=== PATIENT | male | born 1935 | race Caucasian/White ===

== ENCOUNTER 2016-11-19 18:41 | Emergency (ER) | payer MEDICARE, OTHER ==
[2016-11-19] MEDS ORDERED: ACETAMINOPHEN 325 MG TABLET PO STA (19:37)
[2016-11-19] MEDS ORDERED: ACETAMINOPHEN 325 MG TABLET PO ONE (19:44)
[2016-11-19] MEDS ORDERED: AZITHROMYCIN 250 MG TABLET PO STA (21:49)
[2016-11-19] MEDS ORDERED: AZITHROMYCIN 250 MG TABLET PO ONE (21:52)
== END 2016-11-19 22:01 | disposition home or self-care (01) ==
DX: A04.5 Campylobacter enteritis (principal); R50.81 Fever presenting with conditions classified elsewhere; D72.829 Elevated white blood cell count, unspecified
CPT/HCPCS: 36415; 80053; 83605; 83690; 85025; 87040; 87045; 87046; 87070; 87275; 87276; 87430; 87493; 99283; A9270

== ENCOUNTER 2019-02-23 14:36 | Outpatient (CLI) | payer MEDICARE, OTHER ==
[2019-02-23 14:55] LABS: BASOPHILS % (AUTO) 0.7 %; EOSINOPHILS # (AUTO) 0.2 10^3/uL (0.0-0.7); EOSINOPHILS % (AUTO) 3.5 %; LYMPHOCYTES % (AUTO) 36.3 %; MEAN CORPUSCULAR HEMOGLOBIN 29.5 pg (27.0-31.0); MEAN CORPUSCULAR HGB CONC 31.5 g/dL (32.0-36.0); MEAN CORPUSCULAR VOLUME 93.7 fL (80.0-94.0); MEAN PLATELET VOLUME 10.4 fL (7.4-11.4); MONOCYTES # (AUTO) 0.5 10^3/uL (0.0-1.0); MONOCYTES % (AUTO) 8.3 %; NEUTROPHILS # (AUTO) 2.8 10^3/uL (1.5-6.6); NEUTROPHILS % (AUTO) 50.8 %; PLT - PLATELET COUNT 179 10^3/uL (130-450); RED BLOOD COUNT 4.41 10^6/uL (4.70-6.10); RED CELL DISTRIBUTION WIDTH 12.2 % (12.0-15.0); WHITE BLOOD COUNT 5.4 x10^3/uL (4.8-10.8)
[2019-02-23 15:02] LABS: ALBUMIN 3.7 g/dL (3.2-5.5); ALBUMIN/GLOBULIN RATIO 1.2 (1.0-2.2); BILIRUBIN,TOTAL 0.7 mg/dL (0.2-1.0); CREATININE 0.7 mg/dL (0.6-1.2); TOTAL PROTEIN 6.7 g/dL (6.7-8.2)
== END 2019-02-23 14:37 | disposition home or self-care (01) ==
LOC: LAB 14:36
PROVIDERS: ATTEND Physician Assistant
DX: N30.01 Acute cystitis with hematuria (principal)
CPT/HCPCS: 36415; 80053; 85025

== ENCOUNTER 2019-07-20 07:21 | Outpatient (CLI) | payer MEDICARE, OTHER | END 2019-07-20 07:22 | disposition home or self-care (01) | LOC: LAB 07:21 | PROVIDERS: ATTEND Urology | DX: N50.0 Atrophy of testis (principal); N40.1 Benign prostatic hyperplasia with lower urinary tract symptoms; R35.0 Frequency of micturition; Z80.42 Family history of malignant neoplasm of prostate | CPT/HCPCS: 36415; 81599; 84153; 84402; 84403 ==

== ENCOUNTER 2020-02-17 17:35 | Outpatient (CLI) | payer MEDICARE, OTHER | END 2020-02-17 17:36 | disposition short-term general hospital (02) | LOC: EMS 17:35 | PROVIDERS: ATTEND Surgery | DX: I21.4 Non-ST elevation (NSTEMI) myocardial infarction (principal) | CPT/HCPCS: A0425; A0426 ==

== ENCOUNTER 2020-07-24 17:16 | Outpatient (CLI) | payer MEDICARE, OTHER | END 2020-07-24 17:17 | disposition home or self-care (01) | LOC: COV 17:16 | PROVIDERS: ATTEND Internal Medicine | DX: Z01.812 Encounter for preprocedural laboratory examination (principal); Z20.828 Contact with and (suspected) exposure to other viral communicable diseases ==

== ENCOUNTER 2020-08-06 15:00 | Outpatient (CLI) | payer MEDICARE, OTHER | END 2020-08-06 15:01 | disposition EMS.NT | LOC: EMS 15:00 | PROVIDERS: ATTEND Surgery | DX: R04.0 Epistaxis (principal) ==

== ENCOUNTER 2020-11-28 11:00 | Emergency (ER) | payer MEDICARE, OTHER ==
--- NOTE | 2020-11-28 11:21 | XRAY Report ---
PROCEDURE: Chest 1 View X-Ray INDICATIONS: Chest pain TECHNIQUE: One view of the chest was acquired. COMPARISON: 02/17/2020. FINDINGS: Surgical changes and devices: None. Lungs and pleura: No pleural effusions or pneumothorax. Lungs are clear. Mediastinum: Mediastinal contours appear normal. Heart size is normal. Bones and chest wall: No suspicious bony lesions. Overlying soft tissues appear unremarkable. IMPRESSION: No acute cardiopulmonary disease process. Reviewed by: Daniela Mccollum MD, PhD on 11/28/2020 11:20 AM PDT Approved by: Daniela Mccollum MD, PhD on 11/28/2020 11:20 AM PDT Station ID: [id number]
[2020-11-28 11:26] LABS: BASOPHILS % (AUTO) 0.4 %; EOSINOPHILS # (AUTO) 0.3 10^3/uL (0.0-0.7); EOSINOPHILS % (AUTO) 3.6 %; HCT - HEMATOCRIT 43.4 % (42.0-52.0); LYMPHOCYTES # (AUTO) 1.3 10^3/uL (1.5-3.5); LYMPHOCYTES % (AUTO) 19.2 %; MEAN CORPUSCULAR HEMOGLOBIN 30.4 pg (27.0-31.0); MEAN CORPUSCULAR HGB CONC 32.3 g/dL (32.0-36.0); MEAN CORPUSCULAR VOLUME 94.3 fL (80.0-94.0); MEAN PLATELET VOLUME 12.2 fL (7.4-11.4); MONOCYTES # (AUTO) 0.7 10^3/uL (0.0-1.0); MONOCYTES % (AUTO) 9.6 %; NEUTROPHILS # (AUTO) 4.7 10^3/uL (1.5-6.6); NEUTROPHILS % (AUTO) 67.1 %; PLT - PLATELET COUNT 144 10^3/uL (130-450); RED CELL DISTRIBUTION WIDTH 13.1 % (12.0-15.0)
[2020-11-28 11:31] VITALS: BP 127/75
[2020-11-28 11:38] LABS: ALBUMIN 3.9 g/dL (3.2-5.5); ALBUMIN/GLOBULIN RATIO 1.4 (1.0-2.2); BILIRUBIN,TOTAL 1.4 mg/dL (0.2-1.0); CALCIUM 9.2 mg/dL (8.5-10.3); CREATININE 0.8 mg/dL (0.6-1.2); POTASSIUM 3.7 mmol/L (3.5-5.0); TOTAL PROTEIN 6.7 g/dL (6.7-8.2)
--- NOTE | 2020-11-28 11:54 | ED Physician Documentation ---
History of Present Illness - Stated complaint Stated Complaint: SOA/LIGHT HEADED - Chief complaint Chief Complaint: Cardiac - Additonal information Additional information: 85-year-old male presents the emergency department for evaluation of worsening fatigue and weakness after reported event about 1 week ago in which she was sitting and went to get up but got progressively dizzy and lightheaded and felt as though he was going to faint. He states that since that event 1 week ago he has not felt right since he denies chest pain. He does endorse shortness of breath that is not new from baseline. He did have an NSTEMI event about 1 year ago in which he ultimately had 5 stents placed in his heart. He is currently on Plavix and aspirin and is followed by cardiology through [facility]. He last saw cardiology in September 2020 with a plan to have a 3-month follow-up to include an echocardiogram. His echo is currently scheduled for mid December with the appointment with cardiology to follow. At this time patient denies any cough, fevers, chest pain. He has no leg swelling, nausea vomiting. No focal or unilateral weakness. No diarrhea. He does endorse some dysuria but states that it is normal for him. Former smoker, quit almost 50 years ago Review of Systems Constitutional: reports: Fatigue. denies: Fever, Chills Eyes: reports: Reviewed and negative Ears: reports: Reviewed and negative Nose: reports: Rhinorrhea / runny nose Throat: reports: Reviewed and negative Cardiac: denies: Chest pain / pressure, Palpitations, Pedal edema, Calf pain Respiratory: reports: Dyspnea. denies: Cough, Hemoptysis, Wheezing GI: denies: Abdominal Pain, Nausea, Vomiting : reports: Dysuria. denies: Frequency, Hesitancy Skin: denies: Rash, Lesions, Abrasion (s) Musculoskeletal: denies: Neck pain, Back pain, Extremity pain Neurologic: reports: Near syncope. denies: Generalized weakness, Syncope, Confused, Altered mental status, Headache, LOC PD PAST MEDICAL HISTORY - Past Medical History Cardiovascular: Hypertension, High cholesterol, Coronary artery disease Respiratory: Other GI: Other (reflux) - Past Surgical History Past Surgical History: Yes General: Other (Espinoza) Cardiovascular: Coronary stent - Present Medications Home Medications: Ambulatory Orders Medication Instructions Recorded Confirmed Multivitamin [Multiple Vitamins] 1 each PO 11/19/16 11/19/16 Aspirin 81 mg DAILY 02/17/20 02/17/20 Atorvastatin Calcium 80 mg DAILY 02/17/20 02/17/20 Clopidogrel [Plavix] 1 tab DAILY 11/28/20 11/28/20 Metoprolol Succinate [Toprol Xl] 25 mg PO 11/28/20 Omeprazole 1 tab DAILY 11/28/20 11/28/20 Tamsulosin [Flomax] 1 tab DAILY 11/28/20 11/28/20 - Allergies Allergies/Adverse Reactions: Allergies Allergy/AdvReac Type Severity Reaction Status Date / Time No Known Drug Allergies Allergy Verified 11/28/20 11:02 - Social History Does the pt smoke?: No Smoking Status: Never smoker PD ED PE EXPANDED - General General: Alert, No acute distress, Well developed/nourished - Neck Neck: Supple w/out meningeal sx, No tenderness. No: JVD present, Adenopathy, Thyroid enlarged / mass - Cardiac Cardiac: Regular Rate, Regular Rhythm, Radial strong equal, Pedal strong equal, Cap refill < 2 sec - Respiratory Respiratory: Clear to ausultation jovany. No: Distress, Labored - Abdomen Abdomen: Normal Bowel sounds. No: Tender to palpation - Back Back: Normal exam, Soft tissue tenderness. No: CVA TTP right, CVA TTP left - Derm Derm: Normal color, Warm and dry. No: Rash - Neuro Neuro: Alert and Oriented X 3, CNII-XII intact - GCS Eye Opening: Spontaneous Motor: Obeys Commands Verbal: Oriented Total: 15 Results - Vitals Vitals: Vital Signs - 24 hr 11/28/20 11/28/20 11:02 11:30 Temperature 36.4 C L Heart Rate 64 61 Respiratory 18 18 Rate Blood Pressure 127/68 127/75 O2 Saturation 100 100 Oxygen O2 Source Room air - EKG (time done) 1113 Rate: Rate (enter#) (59) Rhythm: NSR [place]: Normal Intervals: Normal [place], Prolonged QT QRS: Poor R wave progression Ischemia: Normal ST segments Compare to prior EKG: Unchanged from prior EKG Computer interpretation: Agree with computer - Labs Labs: Laboratory Tests 11/28/20 11/28/20 11/28/20 11:12 11:12 11:12 WBC 7.0 RBC 4.60 L Hgb 14.0 Hct 43.4 MCV 94.3 H MCH 30.4 MCHC 32.3 RDW 13.1 Plt Count 144 MPV 12.2 H Neut # (Auto) 4.7 Lymph # (Auto) 1.3 L [place] # (Auto) 0.7 Eos # (Auto) 0.3 Baso # (Auto) 0.0 Absolute Nucleated RBC 0.00 Nucleated RBC % 0.0 Sodium 137 Potassium 3.7 Chloride 101 Carbon Dioxide 26 Anion Gap 10.0 BUN 20 Creatinine 0.8 Estimated GFR (MDRD) 92 Glucose 141 H Calcium 9.2 Total Bilirubin 1.4 H AST 32 ALT 31 Alkaline Phosphatase 100 Troponin I High Sens 6.9 B-Natriuretic Peptide Total Protein 6.7 Albumin 3.9 Globulin 2.8 Albumin/Globulin Ratio 1.4 Lipase 24 TSH Urine Color Urine Clarity Urine pH Ur Specific [place]perance Urine Protein Urine Glucose (UA) Urine Ketones Urine Occult Blood Urine Nitrite Urine Bilirubin Urine Urobilinogen Ur Leukocyte Esterase Urine RBC Urine WBC Ur Squamous Epith Cells Urine Bacteria Urine Culture Comments 11/28/20 11/28/20 11/28/20 11:23 11:34 11:34 WBC RBC Hgb Hct MCV MCH MCHC RDW Plt Count MPV Neut # (Auto) Lymph # (Auto) [place]y # (Auto) Eos # (Auto) Baso # (Auto) Absolute Nucleated RBC Nucleated RBC % Sodium Potassium Chloride Carbon Dioxide Anion Gap BUN Creatinine Estimated GFR (MDRD) Glucose Calcium Total Bilirubin AST ALT Alkaline Phosphatase Troponin I High Sens B-Natriuretic Peptide 101 H Total Protein Albumin Globulin Albumin/Globulin Ratio Lipase TSH 1.59 Urine Color YELLOW Urine Clarity CLEAR Urine pH 6.0 Ur Specific [place]ance <=1.005 Urine Protein NEGATIVE Urine Glucose (UA) NEGATIVE Urine Ketones NEGATIVE Urine Occult Blood NEGATIVE Urine Nitrite NEGATIVE Urine Bilirubin NEGATIVE Urine Urobilinogen 0.2 (NORMAL) Ur Leukocyte Esterase NEGATIVE Urine RBC None Seen Urine WBC 0-3 Ur Squamous Epith Cells RARE Squamous Urine Bacteria None Seen Urine Culture Comments NOT INDICATED - Rads (name of study) CXR Radiology: Final report received (No acute cardiopulmonary process) PD MEDICAL DECISION MAKING - ED course Complexity details: reviewed results, re-evaluated patient, considered differential, d/w patient ED course: 85-year-old male presents the emergency department for evaluation of shortness of breath and fatigue for about 1 week. He does have a history of previous coronary artery disease status post stenting x5. He is appropriately on Plavix and aspirin. Today's EKG is nonischemic high-sensitivity troponin negative chest x-ray shows no acute focal infiltrates. BNP essentially normal. Cardiopulmonary exam without adventitious findings he has no leg swelling or crackles. We did check screening labs including a CBC which were unremarkable as well as a thyroid also unremarkable. 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 Pt denies Chest pain at tis time. At this time he appears very stable for discharge home. Emergent return precautions discussed Departure - Departure Disposition: Home, Self Care Clinical Impression: Shortness of breath Fatigue Qualifiers: Fatigue type: unspecified Qualified Code(s): R53.83 - Other fatigue Condition: Stable Record reviewed to determine appropriate education?: Yes Comments: Giovani choi are seen today in the emergency department for some shortness of breath as well as fatigue following an unclear event about 1 week ago. Today's chest x-ray is normal for age. Your EKG does not look worrisome. All your screening labs including your electrolytes your CBC your thyroid and your troponin are normal. It is important you continue to follow-up with your primary care provider next month as scheduled. If at any point you develop sudden shortness of breath, have fevers, cough, develop chest pain especially with exertion please return immediately to the emergency department.
[2020-11-28 12:13] LABS: BILIRUBIN,URINE NEGATIVE (NEGATIVE); GLUCOSE, URINE (UA) NEGATIVE (NEGATIVE); KETONES,URINE (UA) NEGATIVE (NEGATIVE); LEUKOCYTE ESTERASE, URINE NEGATIVE (NEGATIVE); NITRITE,URINE NEGATIVE (NEGATIVE); OCCULT BLOOD,URINE NEGATIVE (NEGATIVE); PROTEIN,URINE NEGATIVE (NEGATIVE); UROBILINOGEN,URINE 0.2 (NORMAL) E.U./dL (NORMAL)
[2020-11-28 12:17] LABS: CLARITY,URINE CLEAR (CLEAR)
[2020-11-28 12:21] LABS: RBC,URINE None Seen /HPF (0-5); SQUAMOUS EPITHELIAL CELL,UR RARE Squamous (<= Few); WBC,URINE 0-3 /HPF (0-3)
[2020-11-28 12:22] LABS: BACTERIA,URINE None Seen /HPF (None Seen)
[2020-11-28 18:46] LABS: CHOL/HDL RATIO 2.8 (<5.0); CHOLESTEROL 135 mg/dL; CK- CREATINE KINASE 127 IU/L (22-269); HDL CHOLESTEROL 48 mg/dL; LDL CHOLESTEROL,CALCULATED 58 mg/dL; LDL CHOLESTEROL,DIRECT 61 mg/dL; LDL/HDL RATIO 1.2 (<3.6); TRIGLYCERIDES 147 mg/dL; VLDL CHOLESTEROL 29 mg/dL
== END 2020-11-28 15:30 | disposition home or self-care (01) ==
LOC: ED 11:00
DX: R53.83 Other fatigue (principal); R06.02 Shortness of breath; I10 Essential (primary) hypertension; R94.31 Abnormal electrocardiogram [ECG] [EKG]; I25.10 Atherosclerotic heart disease of native coronary artery without angina pectoris; Z87.891 Personal history of nicotine dependence; Z95.5 Presence of coronary angioplasty implant and graft; Z79.01 Long term (current) use of anticoagulants; Z79.82 Long term (current) use of aspirin
CPT/HCPCS: 36415; 80053; 80061; 81001; 82550; 83690; 83721; 83880; 84443; 84484; 85025; 87086; 93005; 99284

== ENCOUNTER 2021-04-23 14:18 | Emergency (ER) | payer MEDICARE, OTHER ==
--- NOTE | 2021-04-23 14:45 | ED Physician Documentation ---
PD HPI UPPER EXT INJURY - Stated complaint Stated Complaint: LT ARM INJ/WOUND - Chief complaint Chief Complaint: Laceration - History obtained from History obtained from: Patient - History of Present Illness Location: Left, Forearm Type of injury: Fall (The patient was carrying a tray down steps and slipped and caught his arm on the railing. Unclear the exact sharp edge but it caused a tear along the forearm quite large.) Where injury occurred: Home Timing - onset: Today (just [employer]) Timing - details: Abrupt onset, Still present Worsened by: Moving, Palpating Contributing factors: No: Anticoagulated (he is on antiplatelet Plavix and bleeds easily; no anticoag.) Similar symptoms before: Has not had sx before Recently seen: Not recently seen Review of Systems Neurologic: denies: Focal weakness, Numbness, Altered mental status, Head injury PD PAST MEDICAL HISTORY - Past Medical History Cardiovascular: Hypertension, High cholesterol, Coronary artery disease Respiratory: Other GI: Other (reflux) - Past Surgical History Past Surgical History: Yes General: Other (Espinoza) Cardiovascular: Coronary stent - Present Medications Home Medications: Ambulatory Orders Medication Instructions Recorded Confirmed Multivitamin [Multiple Vitamins] 1 each PO DAILY 11/19/16 04/23/21 Atorvastatin Calcium 80 mg ORAL DAILY 02/17/20 04/23/21 Clopidogrel [Plavix] 1 tab ORAL DAILY 11/28/20 04/23/21 Metoprolol Succinate [Toprol Xl] 12.5 mg PO DAILY 11/28/20 04/23/21 Omeprazole 1 tab ORAL DAILY 11/28/20 04/23/21 Tamsulosin [Flomax] 1 tab DAILY 11/28/20 04/23/21 Vitamin B Complex Vit C No.3 [B 1 each PO DAILY 04/23/21 04/23/21 Complex with Vitamin C] - Allergies Allergies/Adverse Reactions: Allergies Allergy/AdvReac Type Severity Reaction Status Date / Time No Known Drug Allergies Allergy Verified 04/23/21 14:37 - Social History Does the pt smoke?: No Smoking Status: Never smoker Does the pt have substance abuse?: No PD ED PE NORMAL - Vitals Vital signs reviewed: Yes - General General: Alert and oriented X 3, No acute distress (He does seem in some discomfort from the forearm laceration.), Well developed/nourished - HEENT HEENT: Atraumatic - Derm Derm: Normal color, Warm and dry - Extremities Extremities: Other (left medial volar forearm with laceration vertically, 12 cm in length, to fatty layer. Mild bleeding. No FB. 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 ) - Neuro Neuro: Alert and oriented X 3, No motor deficit, No sensory deficit, Normal speech Results - Vitals Vitals: Vital Signs - 24 hr 04/23/21 14:37 Temperature 36.4 C L Heart Rate 75 Respiratory 16 Rate Blood Pressure 125/65 O2 Saturation 96 Oxygen O2 Source Room air Procedures - Laceration (location) left forearm Wound type: Linear, Into subcut fat, Clean Neurovascular status: Sensory intact, Motor intact, Vascular intact Anesthesia: Lidocaine 1% with epi Wound preparation: Wound explored, To the base, debridement of wound edges (traumatic laceration/avulsion) Deep layer closure: Vicryl, size #-0 - enter number (4) Skin layer closure: Nylon, Running, Size #-0 - enter number (4), Sutures - enter # (29) Other: Patient tolerated well, No complications, Neurovascular intact, Dressing applied, Tetanus booster given Departure - Departure Disposition: 01 Home, Self Care Clinical Impression: Forearm laceration Qualifiers: Encounter type: initial encounter Laterality: left Qualified Code(s): S51.812A - Laceration without foreign body of left forearm, initial encounter Condition: Stable Record reviewed to determine appropriate education?: Yes Instructions: ED Laceration All Follow-Up: Porfirio Lowry MD [Primary Care Provider] - Comments: It is okay to wash and shower. Clean off the wound twice a day with soap and water, or peroxide and water. Apply some antibiotic ointment to it to keep it moist. Also to watch for signs of infection such as purulence, redness or increasing pain. Return to your primary care or the ER at the specified time for suture removal. Suture removal 10 to 12 days. Tylenol every 4 hours if needed for pain. Light activity with the arm for the first several days to a week to not work at the stitches too much. That said, light use of the arm will actually be good for keeping the healing tissue a little bit looser.
[2021-04-23] MEDS ORDERED: ACETAMINOPHEN 325 MG TABLET PO STA (15:27)
[2021-04-23 16:00] VITALS: BP 106/61
== END 2021-04-23 16:00 | disposition home or self-care (01) ==
LOC: ED 14:18
DX: S51.812A Laceration without foreign body of left forearm, initial encounter (principal); W10.9XXA Fall (on) (from) unspecified stairs and steps, initial encounter; Y92.009 Unspecified place in unspecified non-institutional (private) residence as the place of occurrence of the external cause; I10 Essential (primary) hypertension; Z79.02 Long term (current) use of antithrombotics/antiplatelets; Z95.5 Presence of coronary angioplasty implant and graft
CPT/HCPCS: 12004; 99282; A9270

== ENCOUNTER 2022-10-17 08:48 | Outpatient (CLI) | payer MEDICARE, OTHER ==
[2022-10-17 09:23] LABS: ALBUMIN 3.7 g/dL (3.2-5.5); ALBUMIN/GLOBULIN RATIO 1.2 (1.0-2.2); ALKALINE PHOSPHATASE 100 IU/L (42-121); ALT ALANINE AMINOTRANSFERASE 26 IU/L (10-60); AST ASPARTATE AMINOTRANSFERASE 29 IU/L (10-42); BILIRUBIN,TOTAL 0.9 mg/dL (0.2-1.0); BUN - BLOOD UREA NITROGEN 21 mg/dL (6-20); CALCIUM 9.6 mg/dL (8.5-10.3); CARBON DIOXIDE - CO2 26 mmol/L (21-32); CHLORIDE 101 mmol/L (101-111); CHOL/HDL RATIO 2.1 (<5.0); CHOLESTEROL 118 mg/dL; CK- CREATINE KINASE 74 IU/L (22-269); CREATININE 0.7 mg/dL (0.6-1.2); GFR - MDRD 107 (>89); GLUCOSE 139 mg/dL (70-100); HDL CHOLESTEROL 55 mg/dL; LDL CHOLESTEROL,CALCULATED 47 mg/dL; LDL CHOLESTEROL,DIRECT 50 mg/dL; LDL/HDL RATIO 0.9 (<3.6); SODIUM 138 mmol/L (135-145); TOTAL PROTEIN 6.7 g/dL (6.7-8.2); TRIGLYCERIDES 80 mg/dL; VLDL CHOLESTEROL 16 mg/dL
== END 2022-10-17 08:49 | disposition home or self-care (01) ==
LOC: LAB 08:48
PROVIDERS: ATTEND Internal Medicine Cardiovascular Disease
DX: R60.0 Localized edema (principal); E78.5 Hyperlipidemia, unspecified; I25.10 Atherosclerotic heart disease of native coronary artery without angina pectoris
CPT/HCPCS: 36415; 80053; 80061; 82550; 83721

== ENCOUNTER 2024-05-26 18:53 | Emergency (ER) | payer MEDICARE, OTHER ==
--- NOTE | 2024-05-26 19:17 | ED Physician Documentation ---
History of Present Illness - Stated complaint Stated Complaint: SOA - Chief complaint Chief Complaint: Resp - History obtained from History obtained from: Patient - Additonal information Additional information: HPI from patient. Patient complains of rapid onset of pleuritic midline chest pain. Onset was approximately noon today while at rest. The pain radiates to bilateral shoulders but not to his back. He denies history of similar symptoms. He has a chronic cough but does not feel his cough is any different or worse today. Denies hemoptysis. Denies fever. He had recent airplane travel to/from [place] (last week). Has not noticed any leg swelling. He says that, approximately 2 weeks ago, he had signs/symptoms that he felt were consistent with COVID, took a home test and he says the result was positive for COVID. However, he says all of the symptoms he had at that time have completely resolved. Past medical history includes OR with 3 stents (approximately 4 years ago). PD PAST MEDICAL HISTORY - Past Medical History Cardiovascular: Hypertension, High cholesterol, Coronary artery disease Respiratory: Other Neuro: Migraines Endocrine/Autoimmune: None GI: GERD, Other : Benign prostate hypertrophy Psych: None Musculoskeletal: None Derm: Other Other Past Medical History: pulmonary fibrosis - Past Surgical History Past Surgical History: Yes General: Hiatal hernia repair, Other Cardiovascular: Coronary stent - Present Medications Home Medications: Ambulatory Orders Medication Instructions Recorded Confirmed Multivitamin [Multiple Vitamins] 1 each PO DAILY 11/19/16 04/23/21 Atorvastatin Calcium 80 mg ORAL DAILY 02/17/20 04/23/21 Clopidogrel [Plavix] 1 tab ORAL DAILY 11/28/20 04/23/21 Metoprolol Succinate [Toprol Xl] 12.5 mg PO DAILY 11/28/20 04/23/21 Omeprazole 1 tab ORAL DAILY 11/28/20 04/23/21 Tamsulosin [Flomax] 1 tab DAILY 11/28/20 04/23/21 Vitamin B Complex Vit C No.3 [B 1 each PO DAILY 04/23/21 04/23/21 Complex with Vitamin C] traMADol [Ultram] 50 mg PO Q4-6H PRN #14 tablet 05/26/24 - Allergies Allergies/Adverse Reactions: Allergies Allergy/AdvReac Type Severity Reaction Status Date / Time No Known Drug Allergies Allergy Verified 05/26/24 19:10 - Social History Does the pt smoke?: No Smoking Status: Never smoker Does the pt drink ETOH?: No Does the pt have substance abuse?: No - Immunizations Immunizations are current?: No Immunizations: TDAP >10years/unknown PD ED PE NORMAL - Vitals Vital signs reviewed: Yes - General General: Alert and oriented X 3, No acute distress, Well developed/nourished - HEENT HEENT: Moist mucous membranes - Neck Neck: Supple, no meningeal sign - Cardiac Cardiac: RRR, No murmur, No gallop, No rub - Respiratory Respiratory: No respiratory distress, Clear bilaterally - Abdomen Abdomen: Soft, Non tender, Non distended - Back Back: No spinal TTP - Derm Derm: Normal color, Warm and dry, No rash - Extremities Extremities: No edema Results - Vitals Vitals: Oxygen O2 Source Room air - EKG (time done) No standard instances EKG releavant findings:: EKG personally interpreted by author of this note. Relevant findings are: Rate: Rate (enter#) (94) Rhythm: NSR [place]: LAD Intervals: Normal [place], QRS normal QRS: Normal Ischemia: Normal ST segments Other comments: Other comments (unifocal PVCs; moderate artifact that does not preclude interpretation ) Computer interpretation: Disagree with computer (no ST abnormalities including no ST elevation ) - Labs Labs: Laboratory Tests 05/26/24 05/26/24 05/26/24 19:13 19:52 19:52 WBC 12.5 H RBC 4.42 L Hgb 13.1 L Hct 41.3 L MCV 93.4 MCH 29.6 MCHC 31.7 L RDW 13.3 Plt Count 169 MPV 12.0 H Neut # (Auto) 10.5 H Lymph # (Auto) 0.9 L [place] # (Auto) 0.9 Eos # (Auto) 0.1 Baso # (Auto) 0.0 Absolute Nucleated RBC 0.00 Nucleated RBC % 0.0 Sodium 137 Potassium 4.2 Chloride 103 Carbon Dioxide 27 Anion Gap 7.0 BUN 26 H Creatinine 0.9 Estimated GFR (MDRD) 80 L Glucose 110 H Calcium 9.5 Total Bilirubin 0.7 AST 22 ALT 19 Alkaline Phosphatase 105 Troponin I High Sens 8.0 Total Protein 6.9 Albumin 4.1 Globulin 2.8 Albumin/Globulin Ratio 1.5 Lipase 14 Nasal Adenovirus (PCR) NOT DETECTED Nasal B. parapertussis DNA (PCR) NOT DETECTED Nasal Coronavir 229E PCR NOT DETECTED Nasal Coronavir HKU1 PCR NOT DETECTED Nasal Coronavir NL63 PCR NOT DETECTED Nasal Coronavir OC43 PCR NOT DETECTED Nasal Enterovir/Rhinovir PCR NOT DETECTED Nasal Influenza B PCR NOT DETECTED Nasal Influenza A PCR NOT DETECTED Nasal Parainfluen 1 PCR NOT DETECTED Nasal Parainfluen 2 PCR NOT DETECTED Nasal Parainfluen 3 PCR NOT DETECTED Nasal Parainfluen 4 PCR NOT DETECTED Nasal RSV (PCR) NOT DETECTED Nasal B.pertussis DNA PCR NOT DETECTED Nasal C.pneumoniae (PCR) NOT DETECTED [place] Human Metapneumo PCR NOT DETECTED Nasal M.pneumoniae (PCR) NOT DETECTED Nasal SARS-CoV-2 (PCR) DETECTED A - Rads (name of study) CTA chest Relevant Findings:: Prelim report reviewed, See rad report PD Medical Decision Making - ED course Complexity details: reviewed results, re-evaluated patient, considered differential, d/w patient ED course: Patient asking for pain medication but declined IV morphine, saying he doesn't want anything that strong. He is given 30mg IV toradol and subsequently reports resolution of his symptoms. No concerning nor diagnostic findings on EKG (see above for my interpretation), blood tests. Mild leukocytosis noted (12.5 wbc). Normal LFTs. Normal hs-cTn (8.0). Respiratory PCR positive for SARS-COV-2 (as noted in HPI, he tested positive at home two weeks ago for COVID; his current symptoms are not typical for COVID and thus this is likely an incidental finding). CTA chest without evidence of acute/emergent process such as PE or aortic syndrome (such as aneurysm, dissection). There are findings on CT c/w ILD, but patient says he has diagnosis of pulmonary fibrosis and thus these findings are expected. Etiology of patient's symptoms is not apparent at this time. 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 He is given take- home pack of vicodin (he is asking for pain medication for fear that it will recur, although he also is preferring non-narcotic options if appropriate. There are no take-home analgesics I can provide that are non-narcotic, and he has already been given NSAID (toradol) in ED and taken acetaminophen [employer]SEM[employer] although he says he only took 250mg (by breaking 500mg tablet in half)). He says he has had vicodin before and tolerates it well. I am e-prescribing tramadol for him, as well. Departure - Departure Disposition: 01 Home, Self Care Clinical Impression: COVID-19 Chest pain Qualifiers: Chest pain type: unspecified Qualified Code(s): R07.9 - Chest pain, unspecified Condition: Good Instructions: ED Chest Pain Atypical Unkn Cause Prescriptions: traMADol [Ultram] 50 mg PO Q4-6H PRN #14 tablet PRN Reason: Pain 5-7 Comments: You tested positive tonight for COVID. As we discussed, your symptoms are atypical for COVID and thus I suspect this result is incidental (unrelated to your symptoms). Fortunately, the results of your blood tests, EKG and CT scan of your chest have no concerning (nor diagnostic) findings. This is reassuring, but the cause of your symptoms remains unclear. Contact your primary care provider in the morning when the office opens to arrange for the next available appointment for follow-up/reevaluation. I have electronically submitted a prescription for tramadol (narcotic/opiate pain medication) to the [facility] pharmacy in [place]. I am prescribing a short course of narcotic pain medication for you. These are potentially dangerous and addictive medications that should be used carefully. These medications may constipate you. Take an [id number] stool softener (docusate) twice daily with plenty of water while taking these medications. If you go 24 hours without a bowel movement, take [id number] miralax, per package instructions. Do not drink or drive while taking these medications. If you received narcotic or sedating medications while in the emergency department, do not drive for 24 hours. Store this medication in a safe, secure place and out of reach of children. It is a violation of federal law to give or sell this medication to another person or to use in a manner other than prescribed. The ED will not refill narcotic prescriptions, including prescriptions lost or stolen. To dispose of unwanted medications: 1. [facility] at [address] in [place] has a medication drop box. They accept prescription medications (in pill form) Thursday through Thursday 9:00 a.m. to 5:00 p.m. 2. The [facility] accepts prescription medications (in pill form only) for disposal year round. Call for more information. 3. Contact the [facility] for the next [facility] sponsored prescription drug collection event. , [phone], or [phone]; Discharge Date/Time: 05/26/24 23:05
[2024-05-26] MEDS ORDERED: iohexoL-300 100 ML VIAL ONE (19:52)
[2024-05-26 19:58] LABS: BASOPHILS % (AUTO) 0.3 %; EOSINOPHILS # (AUTO) 0.1 10^3/uL (0.0-0.7); EOSINOPHILS % (AUTO) 0.4 %; HCT - HEMATOCRIT 41.3 % (42.0-52.0); HGB - HEMOGLOBIN 13.1 g/dL (14.0-18.0); LYMPHOCYTES # (AUTO) 0.9 10^3/uL (1.5-3.5); LYMPHOCYTES % (AUTO) 7.5 %; MEAN CORPUSCULAR HEMOGLOBIN 29.6 pg (27.0-31.0); MEAN CORPUSCULAR HGB CONC 31.7 g/dL (32.0-36.0); MEAN CORPUSCULAR VOLUME 93.4 fL (80.0-94.0); MONOCYTES # (AUTO) 0.9 10^3/uL (0.0-1.0); MONOCYTES % (AUTO) 7.5 %; NEUTROPHILS # (AUTO) 10.5 10^3/uL (1.5-6.6); PLT - PLATELET COUNT 169 10^3/uL (130-450); RED BLOOD COUNT 4.42 10^6/uL (4.70-6.10); RED CELL DISTRIBUTION WIDTH 13.3 % (12.0-15.0); WHITE BLOOD COUNT 12.5 x10^3/uL (4.8-10.8)
[2024-05-26 20:16] LABS: ALBUMIN 4.1 g/dL (3.2-5.5); ALBUMIN/GLOBULIN RATIO 1.5 (1.0-2.2); BILIRUBIN,TOTAL 0.7 mg/dL (0.2-1.0); CALCIUM 9.5 mg/dL (8.5-10.3); CREATININE 0.9 mg/dL (0.6-1.3); POTASSIUM 4.2 mmol/L (3.5-4.5); TOTAL PROTEIN 6.9 g/dL (6.4-8.9)
[2024-05-26 20:21] LABS: B. PARAPERTUSSIS- RESP PCR PAN NOT DETECTED; B. PERTUSSIS- RESP PCR PANEL NOT DETECTED; C. PNEUMONIAE- RESP PCR PANEL NOT DETECTED; CORONAVIRUS 229E-RESP PCR NOT DETECTED; CORONAVIRUS HKU1-RESP PCR NOT DETECTED; CORONAVIRUS NL63-RESP PCR NOT DETECTED; CORONAVIRUS OC43-RESP PCR NOT DETECTED; HUMAN METAPNEUMOVIRUS NOT DETECTED; INFLUENZA A- RESP PCR PANEL NOT DETECTED; INFLUENZA B - RESP PCR PANEL NOT DETECTED; M. PNEUMONIAE- RESP PCR PANEL NOT DETECTED; PARAINFLUENZA VIRUS 1 NOT DETECTED; PARAINFLUENZA VIRUS 2 NOT DETECTED; PARAINFLUENZA VIRUS 3 NOT DETECTED; PARAINFLUENZA VIRUS 4 NOT DETECTED; RHINOVIRUS/ENTEROVIRUS NOT DETECTED; RSV- RESP PCR PANEL NOT DETECTED
[2024-05-26 20:22] LABS: SARS-CoV-2 -RESP PCR PANEL DETECTED
[2024-05-26] MEDS: KETOROLAC 30 MG/ML VIAL IVP STA (20:38)
[2024-05-26] MEDS: MORPHINE 2 MG/ML CARPUJECT IVP STA (20:42)
[2024-05-26] MEDS: iohexoL-300 100 ML VIAL IVP ONE (21:21)
--- NOTE | 2024-05-26 21:22 | CT Report ---
PROCEDURE: Angio Chest INDICATIONS: pleuritic chest pain CONTRAST: 80ml [id number] TECHNIQUE: After the administration of intravenous contrast, 2 mm axial images were acquired from the pulmonary apices to the posterior costophrenic angles during the arterial phase. In addition, 1 mm lung kernel and 5 mm soft tissue kernel reconstructions were performed. 3-dimensional coronal oblique maximum int ensity projection (MIP) reformats, 8 mm axial MIP, and 5 mm coronal and sagittal MPR reformats were t hen performed through the thorax. For radiation dose reduction, the following was used: automated exp osure control, adjustment of mA and/or kV according to patient size. COMPARISON: 11/28/2020 radiograph FINDINGS: Image quality: Diagnostic Lungs and pleura:Background moderate emphysematous changes and peripheral reticulation. No dense cons olidation or pleural effusion. Possible mild superimposed basilar opacities. There may also be micron odules and granulomas. Mediastinum, heart, and esophagus: Distention of the pulmonary trunk indicating chronically high pulm onary pressures. No acute pulmonary embolism. Cardiomegaly. Postsurgical changes at the distal esopha jamie and moderate hiatal hernia. Coronary calcifications. No pathologic lymph nodes by size criteria. Prominent mediastinal hilar lymph nodes, possibly reactive. Chest wall and thyroid: Unremarkable Upper abdomen: Possible liver cysts. The upper abdomen is only partially visualized Bones: No acute or suspicious osseous finding. IMPRESSION: Peripheral reticulation and possible additional opacities in the lungs, with background emphysema. Co rrelate PFTs for ILD. Basal opacities may represent additional atelectasis or infection. Consider sal veillance imaging, possibly with high-resolution protocol. No acute pulmonary embolism. Other findings above. Reviewed by: Diego Maria MD on 05/26/2024 9:21 PM PDT Approved by: Diego Maria MD on 05/26/2024 9:21 PM PDT Station ID: [id number]
[2024-05-26] MEDS: HYDROcod/ACET 5/325 Prepack 4 PO STA (22:40)
[2024-05-26 23:12] VITALS: BP 117/82; O2SAT 97
== END 2024-05-26 23:05 | disposition home or self-care (01) ==
LOC: ED 18:53
DX: U07.1 COVID-19 (principal); R07.9 Chest pain, unspecified; M25.512 Pain in left shoulder; M25.511 Pain in right shoulder; J84.10 Pulmonary fibrosis, unspecified
CPT/HCPCS: 36415; 71275; 80053; 83690; 84484; 85025; 87633; 93005; 96374; 99284; Q9967